=== PATIENT | female | born 1985 | race African-American/Black ===

== ENCOUNTER 2016-09-10 05:00 | Emergency (ER) | payer OTHER ==
[~2016-09-10] VITALS: Ht 165.1 cm; Wt 108.8 kg
[2016-09-10 05:46] LABS: HEMATOCRIT 37.2 % (36.0-46.0); MCH 26.7 PG (29.0-34.0); MCHC 32.5 G/DL (30.0-36.0); MCV 81.9 FL (83-99); MEAN PLAT.VOLUME 11.3 uM^3 (9.5-12.4); PLATELET COUNT 304 K/uL (156-360); RBC DIS.WIDTH-CV 14.6 % (11.8-14.6); RBC DIS.WIDTH-SD 44.2 % (39-53); RED BLOOD COUNT 4.54 M/uL (3.80-5.20); WHITE BLOOD COUNT 5.1 K/uL (4.1-10.2)
[2016-09-10 06:23] LABS: ADD MIUA? YES; BILIRUBIN NEGATIVE; BLOOD LARGE; COLOR YELLOW ((YELLOW)); GLUCOSE (STRIP) NEGATIVE; KETONES NEGATIVE; LEUKOCYTES NEGATIVE; NITRITE NEGATIVE; PROTEIN (STRIP) 30; SPECIFIC GRAVITY 1.016 (1.000-1.030); UROBILINOGEN 0.2 MG/DL (0.2-1.0)
[2016-09-10 06:45] LABS: RED BLOOD CELLS TNTC /HPF (0-5); WHITE BLOOD CELLS 0-5 /HPF (0-5)
[2016-09-10 06:46] LABS: BACTERIA 1+ /HPF; CASTS NONE SEEN /LPF; CRYSTALS NONE SEEN; EPITHELIAL CELLS RARE /HPF; MUCUS RARE /LPF; UCUL ADDED? NO
[2016-09-10] MEDS ORDERED: MACROBID100 MG PO (07:17)
[2016-09-10 10:15] VITALS: BP 114/67
== END 2016-09-10 10:16 | disposition home or self-care (01) ==
LOC: EME 05:00
DX: O23.41 Unspecified infection of urinary tract in pregnancy, first trimester (principal); O20.0 Threatened abortion; Z3A.01 Less than 8 weeks gestation of pregnancy
CPT/HCPCS: 76801; 81003; 84702; 85027; 86850; 86900; 86901; 99281; 99285